=== PATIENT | female | born 1970 | race Two or more races ===

== ENCOUNTER 2017-09-09 00:36 | Emergency (ER) | payer MEDICAID ==
[~2017-09-09] VITALS: Ht 167.6 cm; Wt 62.0 kg
[2017-09-09 02:04] LABS: CLARITY URINE CLOUDY (CLEAR); COLOR URINE YELLOW (YELLOW); KETONES URINE NEGATIVE (NEGATIVE); LEUKOCYTE ESTERASE URINE 1+ (NEGATIVE); NITRITE URINE NEGATIVE (NEGATIVE); OCCULT BLOOD URINE 3+ (NEGATIVE); PH URINE 5.5 (4.5-8.0); PROTEIN URINE TRACE (NEGATIVE); SPECIFIC GRAVITY URINE 1.013 (1.005-1.030)
[2017-09-09 02:14] LABS: BASOPHILS % 0.3 % (0.0-2.0); EOSINOPHILS % 0.5 % (0.0-5.0); HEMATOCRIT. 40.7 % (36.0-48.0); LYMPHOCYTES % 17.6 % (20.0-50.0); MEAN CORPUSCULAR HEMOGLOBIN 30.8 pg (28.0-32.0); MEAN CORPUSCULAR VOLUME 89.6 fL (81.0-99.0); MONOCYTES % 9.1 % (2.0-8.0); NEUTROPHILS % 72.5 % (40.0-76.0); PLATELET 229 x1000/uL (130-400); RED BLOOD CELL COUNT 4.55 mill/uL (4.2-5.4); RED CELL DISTRIBUTION WIDTH 13.6 % (11.6-14.6)
[2017-09-09 02:14] LABS: *AMPHETAMINES SCREEN URINE NEGATIVE (NEGATIVE); *BARBITURATES SCREEN URINE NEGATIVE (NEGATIVE); *BENZODIAZEPINES SCREEN URINE NEGATIVE (NEGATIVE); METHADONE URINE SCREEN NEGATIVE (NEGATIVE); OPIATES URINE SCREEN NEGATIVE (NEGATIVE); PHENCYCLIDINE URINE SCREEN NEGATIVE (NEGATIVE)
[2017-09-09 02:15] LABS: CANNABINOID URINE SCREEN NEGATIVE (NEGATIVE)
[2017-09-09 02:16] LABS: *COCAINE SCREEN URINE PRESUMTIVE POSITIVE (NEGATIVE)
[2017-09-09 02:17] LABS: CHLORIDE 108 mEq/L (98-107)
[2017-09-09 02:18] LABS: HCG SCREEN NEGATIVE
[2017-09-09 02:21] LABS: ETHANOL BLOOD < 10 mg/dL
[2017-09-09] MEDS ORDERED: ALPRAZOLAM 0.5 MG TABLET PO ONE (02:30)
[2017-09-09] MEDS ORDERED: ACETAMINOPHEN 325MG TABLET PO ONE (02:30)
[2017-09-09] MEDS ORDERED: KETOROLAC 60MG/2ML VIAL IM ONE (04:30)
[2017-09-09] MEDS ORDERED: LORAZEPAM 1MG TABLET PO ONE (18:30)
[2017-09-10 13:33] VITALS: BP 128/69
== END 2017-09-10 14:00 | disposition home or self-care (01) ==
LOC: ER 00:36
DX: R45.851 Suicidal ideations (principal); F20.9 Schizophrenia, unspecified; R82.71 Bacteriuria; F14.10 Cocaine abuse, uncomplicated; F41.9 Anxiety disorder, unspecified; F32.9 Major depressive disorder, single episode, unspecified
CPT/HCPCS: 36415; 80053; 80305; 80307; 80329; 81003; 84703; 85025; 96372; 99284; G0482; J1885